=== PATIENT | female | born 1955 | race Caucasian/White ===

== ENCOUNTER 2023-11-10 08:33 | Emergency (ER) | payer MEDICARE ==
[~2023-11-10] VITALS: Ht 175.3 cm; Wt 65.5 kg
[2023-11-10 08:38] VITALS: BP 165/81; PULSE 92; RESP 16; TEMP 98.2; O2SAT 99
== END 2023-11-10 10:05 | disposition home or self-care (01) ==
LOC: ER 08:33
DX: S09.90XA Unspecified injury of head, initial encounter (principal); Z91.09 Other allergy status, other than to drugs and biological substances; W19.XXXA Unspecified fall, initial encounter; Y93.89 Activity, other specified; Y92.89 Other specified places as the place of occurrence of the external cause; Y99.8 Other external cause status
CPT/HCPCS: 70450; 99284